=== PATIENT | female | born 1955 | race Two or more races ===

== ENCOUNTER 2016-12-01 09:16 | Emergency (ER) | payer MEDICAID ==
[~2016-12-01] VITALS: Ht 149.9 cm; Wt 71.7 kg
[~2016-12-01 09:16] MED LIST: BENZ1TAB2; CARI-277; DIPH25TA26; HYDR25CA; RISP2TAB31; TRAZ150T79
[2016-12-01] MEDS ORDERED: cloNIDine HCL 0.1 MG TAB PO ONE (10:00)
[2016-12-01 11:23] VITALS: BP 119/88
[2016-12-01] MEDS ORDERED: NALBUPHINE HCL 10 MG/1ml INJECTION IM ONE (12:00)
== END 2016-12-01 12:41 | disposition home or self-care (01) ==
LOC: ER 09:16
DX: G89.29 Other chronic pain (principal); M54.2 Cervicalgia; M54.9 Dorsalgia, unspecified; I10 Essential (primary) hypertension; M54.12 Radiculopathy, cervical region; I48.91 Unspecified atrial fibrillation; I20.9 Angina pectoris, unspecified; J45.909 Unspecified asthma, uncomplicated; M19.90 Unspecified osteoarthritis, unspecified site; K21.9 Gastro-esophageal reflux disease without esophagitis; Z86.73 Personal history of transient ischemic attack (TIA), and cerebral infarction without residual deficits; Z90.49 Acquired absence of other specified parts of digestive tract; Z98.890 Other specified postprocedural states; Z88.6 Allergy status to analgesic agent
CPT/HCPCS: 96372; 99283; J2300

== ENCOUNTER 2017-03-21 14:47 | Emergency (ER) | payer MEDICAID ==
[~2017-03-21] VITALS: Ht 149.9 cm; Wt 85.7 kg
[2017-03-21 16:32] LABS: Basophils # (auto) 0 uL; Basophils % (auto) 0.5 % (0.0-2.0); Eosinophils # (auto) 0 uL; Eosinophils % (auto) 0.5 % (0.0-7.0); Hematocrit 44.6 % (36.0-46.0); Hemoglobin 15.3 g/dL (12.2-16.2); Lymphocytes # (auto) 1.7 uL; Lymphocytes % (auto) 19.7 % (10.0-50.0); Mean Corpuscular Hemoglobin 29.1 pg (28.0-32.0); Mean Corpuscular Hgb Conc. 34.3 g/dL (32.0-36.0); Mean Corpuscular Volume 84.8 fL (80.0-100.0); Mean Platelet Volume 9.3 fL (7.4-10.4); Monocytes # (auto) 0.4 uL; Monocytes % (auto) 4.7 % (0.0-12.0); Neutrophils # (auto) 6.6 uL; Neutrophils % (auto) 74.6 % (37.0-80.0); Platelet Count (auto) 369 10^3/uL (140-450); Red Cell Distribution Width 13.6 % (11.6-16.0); White Blood Cell 8.8 10^3/uL (4.4-10.8)
[2017-03-21 16:37] LABS: Albumin 3.9 g/dL (3.4-5.0); Alkaline Phosphatase 83 U/L (45-117); Anion Gap 8 (5-15); Aspartate Aminotransferase 18 U/L (15-37); BUN/Creatinine Ratio 15.5; Bilirubin, Total 0.5 mg/dL (0.2-1.0); Blood Urea Nitrogen 9 mg/dL (7-18); Calcium 9.3 mg/dL (8.5-10.1); Carbon Dioxide 24 mmol/L (21-32); Chloride 107 mmol/L (98-107); GFR African American 135 mL/min; GFR Non-African American 112 mL/min; Glucose 85 mg/dL (74-106); Magnesium 2.6 mg/dL (1.6-2.6); Potassium 4.1 mmol/L (3.5-5.1); Sodium 139 mmol/L (136-145); Total Protein 8.3 g/dL (6.4-8.2)
[2017-03-21] MEDS ORDERED: MORPHINE SULFATE 4 MG/ML SYRG IM ONE (19:45)
[2017-03-21] MEDS ORDERED: CYCLOBENZAPRINE HCL 10 MG TAB PO ONE (19:45)
[2017-03-21 21:03] VITALS: BP 157/95
[2017-03-21 21:52] LABS: Urine Bilirubin Negative (Negative); Urine Blood Negative /uL (Negative); Urine Color Yellow (Yellow); Urine Glucose Normal (Normal); Urine Ketone 1+ (Negative); Urine Mucus FEW (None Seen); Urine Nitrite Negative (Negative); Urine RBC 1 /hpf (0 - 4); Urine Squamous Epithelial Cell FEW /hpf (<5); Urine Urobilinogen Normal (Negative); Urine pH 5.5 (5.0-8.0)
== END 2017-03-21 21:04 | disposition home or self-care (01) ==
LOC: EDBD 14:47 → ER 15:07
DX: S49.92XA Unspecified injury of left shoulder and upper arm, initial encounter (principal); M54.12 Radiculopathy, cervical region; I48.91 Unspecified atrial fibrillation; M19.90 Unspecified osteoarthritis, unspecified site; J45.909 Unspecified asthma, uncomplicated; K21.9 Gastro-esophageal reflux disease without esophagitis; I10 Essential (primary) hypertension; R20.0 Anesthesia of skin; R51 Headache; Z88.6 Allergy status to analgesic agent; Z90.49 Acquired absence of other specified parts of digestive tract; W01.0XXA Fall on same level from slipping, tripping and stumbling without subsequent striking against object, initial encounter; Y93.89 Activity, other specified; Y99.8 Other external cause status; Y92.89 Other specified places as the place of occurrence of the external cause
CPT/HCPCS: 36415; 70450; 71010; 72125; 73030; 80053; 81001; 83735; 84484; 85025; 94761; 96372; 99285; J2270

== ENCOUNTER 2017-07-16 00:02 | Emergency (ER) | payer MEDICAID ==
[~2017-07-16] VITALS: Ht 160 cm; Wt 81.6 kg
[~2017-07-16 00:02] MED LIST changes: -BENZ1TAB2; -CARI-277; -DIPH25TA26; +HYDR-4663 PO
[2017-07-16 01:10] LABS: Basophils # (auto) 0.1 uL; Basophils % (auto) 1.2 % (0.0-2.0); Eosinophils # (auto) 0.2 uL; Eosinophils % (auto) 2.9 % (0.0-7.0); Hematocrit 44.1 % (36.0-46.0); Lymphocytes # (auto) 3.1 uL; Lymphocytes % (auto) 36.4 % (10.0-50.0); Mean Corpuscular Hemoglobin 29.4 pg (28.0-32.0); Mean Corpuscular Hgb Conc. 33.9 g/dL (32.0-36.0); Mean Corpuscular Volume 86.8 fL (80.0-100.0); Mean Platelet Volume 8.4 fL (6.9-10.8); Monocytes # (auto) 0.8 uL; Monocytes % (auto) 8.8 % (0.0-12.0); Neutrophils # (auto) 4.3 uL; Neutrophils % (auto) 50.7 % (37.0-80.0); Nucleated Red Blood Cells % 0.1 %; Platelet Count (auto) 339 10^3/uL (140-450); Red Cell Distribution Width 13.7 % (11.8-14.3); White Blood Cell 8.6 10^3/uL (4.4-10.8)
[2017-07-16 01:23] LABS: Albumin 3.9 g/dL (3.4-5.0); Calcium 9.4 mg/dL (8.5-10.1); Magnesium 2.5 mg/dL (1.6-2.6)
[2017-07-16 01:25] LABS: Acetaminophen < 2.0 ug/mL (10-30); Salicylate < 1.7 mg/dL (2.8-20.0)
[2017-07-16 01:26] LABS: Bilirubin, Total 0.2 mg/dL (0.2-1.0); Total Protein 7.9 g/dL (6.4-8.2)
[2017-07-16 01:38] LABS: Urine RBC None Seen /hpf (0 - 4)
[2017-07-16 01:55] LABS: Urine Bilirubin Negative (Negative); Urine Blood Negative /uL (Negative); Urine Glucose Normal (Normal); Urine Ketone Negative (Negative); Urine Nitrite Negative (Negative); Urine Squamous Epithelial Cell FEW /hpf (<5); Urine Urobilinogen Normal (Negative)
[2017-07-16 01:56] LABS: Urine Color Straw (Yellow)
[2017-07-16 04:14] VITALS: BP 140/83
== END 2017-07-16 04:15 | disposition home or self-care (01) ==
LOC: EDBD 00:02 → ER 00:14
DX: S09.90XA Unspecified injury of head, initial encounter (principal); G92 Toxic encephalopathy; F10.120 Alcohol abuse with intoxication, uncomplicated; Z88.6 Allergy status to analgesic agent; X58.XXXA Exposure to other specified factors, initial encounter; Y93.89 Activity, other specified; Y99.8 Other external cause status; Y92.89 Other specified places as the place of occurrence of the external cause
CPT/HCPCS: 36415; 70450; 80053; 80307; 80320; 80329; 81001; 83735; 85025; 99285; J7030

== ENCOUNTER 2017-11-09 17:31 | Emergency (ER) | payer MEDICAID ==
[~2017-11-09] VITALS: Ht 147.8 cm; Wt 68.0 kg
[~2017-11-09 17:31] MED LIST changes: -HYDR-4663 PO; +HYDR-4683 PO
[2017-11-09 19:21] VITALS: BP 150/86
[2017-11-09] MEDS ORDERED: KETOROLAC TROMETH 60MG/2ML VIAL IM ONE (19:30)
== END 2017-11-09 20:21 | disposition home or self-care (01) ==
LOC: ER 18:01
DX: S33.5XXA Sprain of ligaments of lumbar spine, initial encounter (principal); I48.91 Unspecified atrial fibrillation; J45.909 Unspecified asthma, uncomplicated; K21.9 Gastro-esophageal reflux disease without esophagitis; I10 Essential (primary) hypertension; F20.9 Schizophrenia, unspecified; Z86.73 Personal history of transient ischemic attack (TIA), and cerebral infarction without residual deficits; Z83.3 Family history of diabetes mellitus; Z82.49 Family history of ischemic heart disease and other diseases of the circulatory system
CPT/HCPCS: 72100; 73562; 93005; 96372

== ENCOUNTER 2018-10-14 20:29 | Emergency (ER) | payer MEDICAID ==
[~2018-10-14] VITALS: Ht 152.4 cm; Wt 77.1 kg
[2018-10-14] MEDS ORDERED: ONDANSETRON ODT 4 MG TAB PO ONE (21:30)
[2018-10-14] MEDS ORDERED: KETOROLAC TROMETH 60MG/2ML VIAL IM ONE (21:30)
[2018-10-14] MEDS ORDERED: methylPREDNISolone SOD SUCC 125 MG/2 ML VL IM ONE (21:30)
[2018-10-14 22:10] VITALS: BP 171/96
== END 2018-10-14 22:15 | disposition home or self-care (01) ==
LOC: ER 20:29 → EDBD 20:29 → ER 22:14
DX: M47.892 Other spondylosis, cervical region (principal); G89.29 Other chronic pain; M54.5 Low back pain; M62.838 Other muscle spasm; I48.91 Unspecified atrial fibrillation; I10 Essential (primary) hypertension; M19.90 Unspecified osteoarthritis, unspecified site; K21.9 Gastro-esophageal reflux disease without esophagitis; Z86.73 Personal history of transient ischemic attack (TIA), and cerebral infarction without residual deficits; Z88.6 Allergy status to analgesic agent; Z90.49 Acquired absence of other specified parts of digestive tract
CPT/HCPCS: 72040; 72100; 96372; 99283; J1885; J2930; Q0162

== ENCOUNTER 2021-01-08 03:42 | Emergency (ER) | payer MEDICARE, MEDICAID ==
[~2021-01-08] VITALS: Ht 162.6 cm; Wt 70.8 kg
[~2021-01-08 03:42] MED LIST changes: +ASPI-543 PO; +ATOR10TA52 PO; +GABA100C9 PO; -HYDR-4683 PO; -HYDR25CA; -RISP2TAB31; -TRAZ150T79
[2021-01-08 05:43] LABS: Basophils # (auto) 0.1 10 ^3/uL (0-0.2); Basophils % (auto) 1.2 % (0.0-2.0); Eosinophils # (auto) 0.2 10 ^3/uL (0-0.8); Eosinophils % (auto) 2.4 % (0.0-7.0); Hematocrit 37.4 % (36.0-46.0); Hemoglobin 12.8 g/dL (12.2-16.2); Lymphocytes # (auto) 3.6 10 ^3/uL (0.4-5.4); Lymphocytes % (auto) 51.5 % (10.0-50.0); Mean Corpuscular Hemoglobin 29.4 pg (28.0-32.0); Mean Corpuscular Hgb Conc. 34.3 g/dL (32.0-36.0); Mean Corpuscular Volume 85.6 fL (80.0-100.0); Monocytes # (auto) 0.5 10 ^3/uL (0-1.3); Monocytes % (auto) 6.9 % (0.0-12.0); Neutrophils # (auto) 2.6 10 ^3/uL (1.6-8.6); Nucleated Red Blood Cells % 0.1 %; Platelet Count (auto) 309 10^3/uL (140-450); Red Blood Cells 4.37 10^6/uL (4.0-5.20); White Blood Cell 6.9 10^3/uL (4.4-10.8)
[2021-01-08 05:50] LABS: Albumin 3.6 g/dL (3.4-5.0); Anion Gap 9 (5-15); BUN/Creatinine Ratio 19.1; Blood Urea Nitrogen 13 mg/dL (7-18); Calcium 8.2 mg/dL (8.5-10.1); Carbon Dioxide 23 mmol/L (21-32); Chloride 113 mmol/L (98-107); GFR African American 111 mL/min; GFR Non-African American 92 mL/min; Glucose 88 mg/dL (74-106); Sodium 145 mmol/L (136-145)
[2021-01-08 05:55] LABS: Alanine Aminotransferase 23 U/L (13-56); Alkaline Phosphatase 111 U/L (45-117); Aspartate Aminotransferase 22 U/L (15-37); Bilirubin, Total 0.1 mg/dL (0.2-1.0); Total Protein 7.4 g/dL (6.4-8.2)
[2021-01-08 06:10] LABS: Urine Bacteria FEW /hpf (None Seen); Urine Blood Negative /uL (Negative); Urine Specific Gravity 1.007 (1.001-1.035); Urine WBC <1 /hpf (0 - 5)
[2021-01-08 06:14] LABS: Amphetamine Screen, Urine NEGATIVE (NEGATIVE); Barbiturate Scree,Urine NEGATIVE (NEGATIVE); Benzodiazephine Screen, Urine NEGATIVE (NEGATIVE); Cannabinoid Screen, Urine NEGATIVE (NEGATIVE); Cocaine Screen, Urine NEGATIVE (NEGATIVE); Opiate Scree,Urine POSITIVE (NEGATIVE)
[2021-01-08 06:22] LABS: Phencyclidine Screen, Urine NEGATIVE (NEGATIVE)
[2021-01-08 06:48] LABS: INR 0.91 (0.9-1.15); Partial Thromboplastin Time 27.3 sec (23.0-31.2)
[2021-01-08] MEDS ORDERED: SODIUM CHLORIDE 0.9% 1,000 ML IV ONE (08:30)
[2021-01-08] MEDS ORDERED: ACETAMINOPHEN 325 MG TAB PO ONE (09:45)
[2021-01-08] MEDS ORDERED: METOPROLOL TARTRATE 1MG/1ML-5ML VIAL IV ONE (12:00)
[2021-01-08 12:48] VITALS: BP 178/89
== END 2021-01-08 13:01 | disposition home or self-care (01) ==
LOC: EDBD 03:42 → ER 03:42
DX: R41.82 Altered mental status, unspecified (principal); F31.9 Bipolar disorder, unspecified; G89.4 Chronic pain syndrome; F10.10 Alcohol abuse, uncomplicated; F12.10 Cannabis abuse, uncomplicated; I10 Essential (primary) hypertension; K21.9 Gastro-esophageal reflux disease without esophagitis; Z90.49 Acquired absence of other specified parts of digestive tract; Z88.6 Allergy status to analgesic agent
CPT/HCPCS: 36415; 70450; 71045; 80053; 80307; 81001; 83605; 83880; 84484; 85025; 85610; 85730; 87040; 87086; 93005; 96361; 96374; 99285; J7030

== ENCOUNTER 2023-03-02 11:17 | Emergency (ER) | payer MEDICARE, MEDICAID ==
[~2023-03-02] VITALS: Ht 147.3 cm; Wt 68.0 kg
[2023-03-02 12:40] VITALS: BP 158/93
[2023-03-02] MEDS ORDERED: CEPH-510 PO (12:52)
== END 2023-03-02 13:06 | disposition home or self-care (01) ==
LOC: ER 11:17
DX: S61.234A Puncture wound without foreign body of right ring finger without damage to nail, initial encounter (principal); I48.91 Unspecified atrial fibrillation; I10 Essential (primary) hypertension; J45.909 Unspecified asthma, uncomplicated; K21.9 Gastro-esophageal reflux disease without esophagitis; Z86.73 Personal history of transient ischemic attack (TIA), and cerebral infarction without residual deficits; Z90.49 Acquired absence of other specified parts of digestive tract; Z79.82 Long term (current) use of aspirin; Z79.899 Other long term (current) drug therapy; Z88.5 Allergy status to narcotic agent; W26.8XXA Contact with other sharp object(s), not elsewhere classified, initial encounter; Y93.89 Activity, other specified; Y92.89 Other specified places as the place of occurrence of the external cause; Y99.8 Other external cause status